=== PATIENT | male | born 1965 | race Caucasian/White ===

== ENCOUNTER 2018-06-14 17:13 | Emergency (ER) | payer OTHER ==
[~2018-06-14] VITALS: Ht 180.3 cm; Wt 106.6 kg
[~2018-06-14 17:13] MED LIST: APAP W/CODEINE1 TA2 PO
[2018-06-14 17:32] LABS: URINE BILIRUBIN NEGATIVE (Negative); URINE BLOOD NEGATIVE (Negative); URINE CLARITY CLEAR; URINE COLOR YELLOW; URINE GLUCOSE-RANDOM* NEGATIVE (Negative); URINE KETONES NEGATIVE (Negative); URINE LEUKOCYTES-REFLEX NEGATIVE (Negative); URINE NITRITE-REFLEX NEGATIVE (Negative); URINE PROTEIN (DIPSTICK) NEGATIVE (Negative)
[2018-06-14 18:15] LABS: CALCIUM 9.7 mg/dL (8.5-10.1); CREATININE 1.4 mg/dL (0.7-1.3); POTASSIUM 3.8 mmol/L (3.5-5.1)
[2018-06-14 18:19] LABS: ABSOLUTE NEUTROPHILS 3.9 thou/uL (1.4-8.2); BASOPHILS 0.6 % (0.0-2.0); EOSINOPHILS 0.9 % (0.0-3.0); HEMATOCRIT 44.1 % (42.0-52.0); HEMOGLOBIN 15.5 gm/dL (14.0-18.0); LYMPHOCYTES 21.5 % (24.0-44.0); MCH 32.9 pg (26.0-34.0); MCHC 35.2 g/dL (28.0-37.0); MCV 93.6 fL (80.0-100.0); MONOCYTES 7.1 % (1.0-8.0); PLATELET COUNT 148 thou/uL (150-400); POLYS 69.9 % (36.0-66.0); RBC 4.72 mil/uL (4.50-6.00); RDW 13.5 % (10.5-14.5); WBC 5.6 thou/uL (4.0-11.0)
[2018-06-14 18:21] LABS: ALBUMIN 3.9 g/dL (3.4-5.0); TOTAL BILIRUBIN 0.5 mg/dL (<0.1-1.0); TOTAL PROTEIN 7.8 g/dL (6.4-8.2)
[2018-06-14] MEDS ORDERED: PROZAC20 MG PO (18:21)
[2018-06-14] MEDS ORDERED: TRAMADOL 50 MG50 MG PO (19:16)
[2018-06-14] MEDS ORDERED: ZOFRAN8 MG PO (19:16)
[2018-06-14 20:24] VITALS: BP 170/80
[2018-06-16] MEDS ORDERED: ZOFRAN 4 MG ORAL4 MG DISSOLVE (09:57)
[2018-06-16] MEDS ORDERED: FLOMAX0.4 MG PO (09:57)
[2018-06-16] MEDS ORDERED: PANTOPRAZOLE SO40 M1 PO (09:57)
[2018-06-16] MEDS ORDERED: ACETAMINOPHEN325 M1 PO (09:57)
[2018-06-16] MEDS ORDERED: LIDOPATCH1 EACH TRANSDERM (09:57)
[2018-06-16] MEDS ORDERED: BACLOFEN 10MG T10 MG PO (09:57)
[2018-06-16] MEDS ORDERED: MEDROLDOSEPACK PO (09:57)
[2018-06-16] MEDS ORDERED: MIRALAX17 GM PO (09:57)
[2018-06-16] MEDS ORDERED: HYDROCODON-ACE1 EAC7 PO (09:57)
== END 2018-06-14 20:35 | disposition home or self-care (01) ==
LOC: ER 17:13
PROVIDERS: Emergency Medicine
DX: R10.32 Left lower quadrant pain (principal); R19.7 Diarrhea, unspecified; K21.9 Gastro-esophageal reflux disease without esophagitis

== ENCOUNTER 2018-06-17 13:56 | Emergency (ER) | payer OTHER ==
[~2018-06-17] VITALS: Ht 180.3 cm; Wt 108.9 kg
[~2018-06-17 13:56] MED LIST changes: +ACETAMINOPHEN325 M1 PO; +BACLOFEN 10MG T10 MG PO; +FLOMAX0.4 MG PO; +HYDROCODON-ACE1 EAC7 PO; +LIDOPATCH1 EACH TRANSDERM; +MEDROLDOSEPACK PO; +MIRALAX17 GM PO; +PANTOPRAZOLE SO40 M1 PO; +PROZAC20 MG PO; +TRAMADOL 50 MG50 MG PO; +ZOFRAN 4 MG ORAL4 MG DISSOLVE; +ZOFRAN8 MG PO
[2018-06-17 16:09] VITALS: BP 175/97
== END 2018-06-17 16:09 | disposition home or self-care (01) ==
LOC: ER 13:56
DX: M51.36 Other intervertebral disc degeneration, lumbar region (principal); K21.9 Gastro-esophageal reflux disease without esophagitis